=== PATIENT | female | born 1960 | race Two or more races ===

== ENCOUNTER → 2017-02-17 | Outpatient (CLI) | payer MEDICAID ==
[2017-02-17 18:34] LABS: HEMOGLOBIN 16.6 g/dL (12.2-16.2); LYMPH # 2.4 K/mm3 (0.7-4.5); LYMPH % 33.9 % (10-50.0)
[2017-02-17 20:20] LABS: BUN 17 mg/dL (7-18)
[2017-02-17 22:02] LABS: GFR (ESTIMATED) 87 ML/MIN (59-)
== END ==
LOC: LAB 17:31
PROVIDERS: Emergency Medicine
DX: R53.83 Other fatigue (principal)